=== PATIENT | male | born 1955 | race African-American/Black ===

== ENCOUNTER 2017-12-02 17:21 | Inpatient (IN) | payer MEDICAID, OTHER ==
[~2017-12-02] VITALS: Ht 185.4 cm; Wt 102.6 kg
[2017-12-02 19:09] LABS: Urine Bacteria FEW /hpf (None Seen); Urine Blood 1+ /uL (Negative); Urine Specific Gravity 1.011 (1.001-1.035); Urine WBC 3 /hpf (0 - 3)
[2017-12-02 19:11] LABS: Basophils # (auto) 0.1 uL; Eosinophils # (auto) 0.3 uL; Hemoglobin 9.6 g/dL (13.5-17.5); Lymphocytes # (auto) 1.4 uL; Red Cell Distribution Width 17.5 % (11.8-14.3)
[2017-12-02 19:13] LABS: Basophils % (auto) 0.8 % (0.0-2.0); Eosinophils % (auto) 3.1 % (0.0-7.0); Hematocrit 30.8 % (41.0-53.0); Lymphocytes % (auto) 12.3 % (10.0-50.0); Mean Corpuscular Hemoglobin 22.7 pg (28.0-32.0); Mean Corpuscular Hgb Conc. 31.2 g/dL (32.0-36.0); Monocytes # (auto) 0.7 uL; Monocytes % (auto) 6.3 % (0.0-12.0); Neutrophils # (auto) 8.8 uL; Neutrophils % (auto) 77.5 % (37.0-80.0); Platelet Count (auto) 371 10^3/uL (140-450); Red Blood Cells 4.22 10^6/uL (4.5-5.90); White Blood Cell 11.3 10^3/uL (4.4-10.8)
[2017-12-02 19:14] LABS: Albumin 2.8 g/dL (3.4-5.0); Calcium 7.9 mg/dL (8.5-10.1); Potassium 4.5 mmol/L (3.5-5.1)
[2017-12-02 19:22] LABS: BUN/Creatinine Ratio 7.5; Bilirubin, Total 0.3 mg/dL (0.2-1.0); Total Protein 7.6 g/dL (6.4-8.2)
[2017-12-02] MEDS ORDERED: hydrALAZINE HCL 20 MG/ML VL IV ONE (20:45)
[2017-12-02] MEDS ORDERED: cloNIDine HCL 0.1 MG TAB PO ONE (20:45)
[2017-12-02 21:40] LABS: INR 0.95 (0.9-1.15); Partial Thromboplastin Time 67.5 sec (23.78-33.04); Prothrombin Time 10.2 sec (9.27-12.13)
[2017-12-03] MEDS ORDERED: PANTOPRAZOLE 40 MG/10 ML VIAL IV ONE (01:30)
[2017-12-03] MEDS ORDERED: FUROSEMIDE 20 MG/2 ML VIAL IV ONE (01:30)
[2017-12-03] MEDS ORDERED: MORPHINE SULFATE 4 MG/ML SYR/VIAL IV PRN (04:45)
[2017-12-03] MEDS ORDERED: NITROGLYCERIN 0.4 MG SL TAB SL PRN (04:45)
[2017-12-03] MEDS ORDERED: ONDANSETRON HCL 4 MG/2 ML VIAL IV PRN (05:00)
[2017-12-03] MEDS ORDERED: DEXTROSE (50%) 50ML SYRG IV PRN (05:00)
[2017-12-03] MEDS ORDERED: ACETAMINOPHEN 500 MG TAB PO PRN (05:00)
[2017-12-03 05:45] LABS: Basophils # (auto) 0.1 uL; Basophils % (auto) 0.8 % (0.0-2.0); Eosinophils # (auto) 0.3 uL; Hemoglobin 9.4 g/dL (13.5-17.5)
[2017-12-03 05:47] LABS: Eosinophils % (auto) 3.4 % (0.0-7.0); Hematocrit 29.5 % (41.0-53.0); Lymphocytes # (auto) 1.4 uL; Lymphocytes % (auto) 14.4 % (10.0-50.0); Mean Corpuscular Hgb Conc. 31.7 g/dL (32.0-36.0); Mean Corpuscular Volume 72.5 fL (80.0-100.0); Monocytes # (auto) 0.8 uL; Monocytes % (auto) 7.9 % (0.0-12.0); Neutrophils # (auto) 7.1 uL; Neutrophils % (auto) 73.5 % (37.0-80.0); Platelet Count (auto) 348 10^3/uL (140-450); Red Blood Cells 4.08 10^6/uL (4.5-5.90); Red Cell Distribution Width 17.4 % (11.8-14.3); White Blood Cell 9.7 10^3/uL (4.4-10.8)
[2017-12-03 05:52] LABS: Mean Corpuscular Hemoglobin 23.2 pg (28.0-32.0)
[2017-12-03] MEDS ORDERED: cloNIDine HCL 0.1 MG TAB PO SCH (06:00)
[2017-12-03 06:12] LABS: BUN/Creatinine Ratio 7.8; Calcium 8.6 mg/dL (8.5-10.1); Potassium 4.5 mmol/L (3.5-5.1)
[2017-12-03] MEDS: hydrALAZINE HCL 25 MG TAB PO SCH ×3 (06:27→21:56)
[2017-12-03] MEDS: ACCU-CHEK COMFORT CURVE STRIP VI SCH ×4 (06:27→22:03)
[2017-12-03] MEDS: InsuLIN REG 1unit/0.01ml Soln (100units/ml) SC SCH ×4 (06:28→22:00)
[2017-12-03] MEDS: INSULIN LANTUS (GLARGINE) 1 /0.01ml (100units/ml) SC SCH (07:00)
[2017-12-03 08:45] VITALS: BP 147/90
[2017-12-03 09:00] VITALS: BP 147/90
[2017-12-03] MEDS ORDERED: LOSARTAN POTASSIUM 50 MG TAB PO SCH (10:00)
[2017-12-03] MEDS: SODIUM BICARBONATE 650 MG TAB PO SCH ×2 (10:56→21:55)
[2017-12-03] MEDS ORDERED: FUROSEMIDE 40 MG/4 ML VIAL IV ONE (12:30)
[2017-12-03 12:42] VITALS: BP 158/100
[2017-12-03] MEDS ORDERED: LOSA-46 PO (12:50)
[2017-12-03] MEDS ORDERED: HYDR100T22 PO (12:50)
[2017-12-03] MEDS ORDERED: CLON0.1T PO (12:50)
[2017-12-03 14:04] LABS: Hepatitis B Surface Antigen Negative (Negative)
[2017-12-03 14:05] LABS: Hepatitis A Ab IgM Negative; Hepatitis B Core IgM Negative
[2017-12-03 14:19] LABS: Hepatitis C Antibody Positive (Negative)
[2017-12-03] MEDS: cloNIDine HCL 0.1 MG TAB PO SCH ×2 (15:15→21:56)
[2017-12-03 16:57] VITALS: BP 174/101
[2017-12-03] MEDS: SEVELAMER 800 MG TAB PO SCH (17:41)
[2017-12-03] MEDS: FUROSEMIDE 40 MG/4 ML VIAL IV SCH (17:42)
[2017-12-03 20:00] VITALS: BP 121/69
[2017-12-03] MEDS: SILVER SULFADIAZINE 1 % TOPICAL CREAM 50GM TOP SCH (21:56)
[2017-12-03 22:00] VITALS: BP 121/69
[2017-12-04 05:00] VITALS: BP 112/71
[2017-12-04] MEDS: cloNIDine HCL 0.1 MG TAB PO SCH ×3 (06:00→21:46)
[2017-12-04] MEDS: hydrALAZINE HCL 25 MG TAB PO SCH ×3 (06:00→21:45)
[2017-12-04] MEDS: FUROSEMIDE 40 MG/4 ML VIAL IV SCH ×2 (06:01→17:27)
[2017-12-04] MEDS: INSULIN LANTUS (GLARGINE) 1 /0.01ml (100units/ml) SC SCH (06:02)
[2017-12-04] MEDS: InsuLIN REG 1unit/0.01ml Soln (100units/ml) SC SCH ×4 (06:02→21:46)
[2017-12-04] MEDS: ACCU-CHEK COMFORT CURVE STRIP VI SCH ×4 (06:03→21:47)
[2017-12-04 06:19] LABS: Eosinophils # (auto) 0.4 uL; Lymphocytes # (auto) 1.3 uL
[2017-12-04 06:22] LABS: Basophils # (auto) 0.1 uL; Basophils % (auto) 0.6 % (0.0-2.0); Eosinophils % (auto) 3.8 % (0.0-7.0); Hemoglobin 9.7 g/dL (13.5-17.5); Mean Corpuscular Hemoglobin 23.6 pg (28.0-32.0); Mean Corpuscular Hgb Conc. 32.4 g/dL (32.0-36.0); Mean Corpuscular Volume 72.7 fL (80.0-100.0); Monocytes # (auto) 0.6 uL; Monocytes % (auto) 6.5 % (0.0-12.0); Neutrophils # (auto) 7.2 uL; Neutrophils % (auto) 75.1 % (37.0-80.0); Platelet Count (auto) 353 10^3/uL (140-450); Red Blood Cells 4.13 10^6/uL (4.5-5.90); Red Cell Distribution Width 17.5 % (11.8-14.3); White Blood Cell 9.5 10^3/uL (4.4-10.8)
[2017-12-04 06:55] LABS: Albumin 2.8 g/dL (3.4-5.0); BUN/Creatinine Ratio 7.8; Bilirubin, Total 0.3 mg/dL (0.2-1.0); Calcium 8.6 mg/dL (8.5-10.1); Potassium 4.3 mmol/L (3.5-5.1); Total Protein 7.3 g/dL (6.4-8.2)
[2017-12-04] MEDS: SEVELAMER 800 MG TAB PO SCH ×3 (08:00→17:27)
[2017-12-04 08:07] VITALS: BP 152/92
[2017-12-04] MEDS: NIFEdipine ER 30 MG TAB PO SCH (10:05)
[2017-12-04] MEDS: POTASSIUM CHL 20 Meq TABLET PO SCH (10:05)
[2017-12-04] MEDS: EUCERIN CREAM 2OZ TUBE TOP SCH (10:06)
[2017-12-04] MEDS: SILVER SULFADIAZINE 1 % TOPICAL CREAM 50GM TOP SCH ×2 (10:06→21:47)
[2017-12-04] MEDS: SODIUM BICARBONATE 650 MG TAB PO SCH ×2 (10:06→21:45)
[2017-12-04] MEDS: CHLORHEXIDINE 4% TOPICAL soln 237ML TOP SCH (10:52)
[2017-12-04 12:14] VITALS: BP 157/91
[2017-12-04] MEDS ORDERED: EPOETIN ALFA 10,000 UNIT/1 ML VIAL SC ONE (15:00)
[2017-12-04 17:00] VITALS: BP 134/79
[2017-12-04 17:25] LABS: % Iron Saturation 12.5 % (20-55)
[2017-12-04 20:00] VITALS: BP 124/73
[2017-12-04 22:00] VITALS: BP 124/73
[2017-12-05 04:53] VITALS: BP 110/67
[2017-12-05] MEDS: FUROSEMIDE 40 MG/4 ML VIAL IV SCH ×2 (05:37→17:29)
[2017-12-05] MEDS: cloNIDine HCL 0.1 MG TAB PO SCH ×3 (05:38→21:43)
[2017-12-05] MEDS: hydrALAZINE HCL 25 MG TAB PO SCH ×3 (05:38→21:49)
[2017-12-05] MEDS: INSULIN LANTUS (GLARGINE) 1 /0.01ml (100units/ml) SC SCH (07:00)
[2017-12-05] MEDS: InsuLIN REG 1unit/0.01ml Soln (100units/ml) SC SCH ×4 (07:00→21:46)
[2017-12-05] MEDS: ACCU-CHEK COMFORT CURVE STRIP VI SCH ×4 (07:07→21:46)
[2017-12-05 07:41] LABS: Basophils # (auto) 0.1 uL; Hematocrit 29.4 % (41.0-53.0); Lymphocytes # (auto) 1.7 uL; Red Cell Distribution Width 17.4 % (11.8-14.3)
[2017-12-05 07:44] LABS: Basophils % (auto) 0.6 % (0.0-2.0); Eosinophils # (auto) 0.3 uL; Eosinophils % (auto) 3.5 % (0.0-7.0); Hemoglobin 9.3 g/dL (13.5-17.5); Lymphocytes % (auto) 17.3 % (10.0-50.0); Mean Corpuscular Hemoglobin 22.7 pg (28.0-32.0); Mean Corpuscular Hgb Conc. 31.7 g/dL (32.0-36.0); Mean Corpuscular Volume 71.7 fL (80.0-100.0); Monocytes # (auto) 0.8 uL; Monocytes % (auto) 8.1 % (0.0-12.0); Neutrophils % (auto) 70.5 % (37.0-80.0); Platelet Count (auto) 372 10^3/uL (140-450); White Blood Cell 9.9 10^3/uL (4.4-10.8)
[2017-12-05 07:50] LABS: Albumin 2.8 g/dL (3.4-5.0); BUN/Creatinine Ratio 7.9; Bilirubin, Total 0.3 mg/dL (0.2-1.0); Calcium 8.3 mg/dL (8.5-10.1); Potassium 4.3 mmol/L (3.5-5.1)
[2017-12-05 08:30] VITALS: BP 128/73
[2017-12-05] MEDS: SEVELAMER 800 MG TAB PO SCH ×3 (08:31→17:29)
[2017-12-05] MEDS: SODIUM FERR GLUC 62.5MG/5ML 125 MG in SODIUM CHL 0.9% 100 ML IV SCH (09:25)
[2017-12-05] MEDS: POTASSIUM CHL 20 Meq TABLET PO SCH (10:33)
[2017-12-05] MEDS: SODIUM BICARBONATE 650 MG TAB PO SCH ×2 (10:34→21:43)
[2017-12-05] MEDS: NIFEdipine ER 30 MG TAB PO SCH (10:35)
[2017-12-05] MEDS ORDERED: SODIUM FERR GLUC 62.5MG/5ML 125 MG in SODIUM CHL 0.9% 100 ML IV SCH (12:00)
[2017-12-05 12:30] VITALS: BP 130/71
[2017-12-05] MEDS: SILVER SULFADIAZINE 1 % TOPICAL CREAM 50GM TOP SCH ×2 (15:18→21:43)
[2017-12-05] MEDS: CHLORHEXIDINE 4% TOPICAL soln 237ML TOP SCH (15:18)
[2017-12-05] MEDS: EUCERIN CREAM 2OZ TUBE TOP SCH (15:44)
[2017-12-05 16:37] VITALS: BP 111/67
[2017-12-05 20:00] VITALS: BP 134/76
[2017-12-05 21:35] VITALS: BP 134/76
[2017-12-06 04:34] VITALS: BP 119/72
[2017-12-06] MEDS: cloNIDine HCL 0.1 MG TAB PO SCH ×3 (06:00→22:32)
[2017-12-06] MEDS: hydrALAZINE HCL 25 MG TAB PO SCH ×3 (06:00→22:00)
[2017-12-06 06:07] LABS: Basophils # (auto) 0.1 uL; Basophils % (auto) 0.5 % (0.0-2.0); Eosinophils # (auto) 0.4 uL; Eosinophils % (auto) 3.5 % (0.0-7.0); Hematocrit 32.8 % (41.0-53.0); Hemoglobin 10.3 g/dL (13.5-17.5); Lymphocytes % (auto) 17.2 % (10.0-50.0); Mean Corpuscular Hemoglobin 22.6 pg (28.0-32.0); Mean Corpuscular Hgb Conc. 31.4 g/dL (32.0-36.0); Mean Corpuscular Volume 72.1 fL (80.0-100.0); Monocytes # (auto) 0.8 uL; Monocytes % (auto) 6.6 % (0.0-12.0); Neutrophils # (auto) 8.5 uL; Neutrophils % (auto) 72.2 % (37.0-80.0); Platelet Count (auto) 401 10^3/uL (140-450); Red Blood Cells 4.54 10^6/uL (4.5-5.90); Red Cell Distribution Width 17.3 % (11.8-14.3); White Blood Cell 11.8 10^3/uL (4.4-10.8)
[2017-12-06] MEDS: FUROSEMIDE 40 MG/4 ML VIAL IV SCH ×2 (06:20→18:28)
[2017-12-06] MEDS: InsuLIN REG 1unit/0.01ml Soln (100units/ml) SC SCH ×4 (06:21→22:00)
[2017-12-06] MEDS: INSULIN LANTUS (GLARGINE) 1 /0.01ml (100units/ml) SC SCH (06:21)
[2017-12-06] MEDS: ACCU-CHEK COMFORT CURVE STRIP VI SCH ×4 (06:22→22:33)
[2017-12-06 06:30] LABS: BUN/Creatinine Ratio 7.2; Calcium 8.6 mg/dL (8.5-10.1); Potassium 4.5 mmol/L (3.5-5.1)
[2017-12-06 06:32] LABS: Bilirubin, Total 0.3 mg/dL (0.2-1.0); Total Protein 7.7 g/dL (6.4-8.2)
[2017-12-06] MEDS: SEVELAMER 800 MG TAB PO SCH ×3 (08:44→18:28)
[2017-12-06] MEDS: SODIUM FERR GLUC 62.5MG/5ML 125 MG in SODIUM CHL 0.9% 100 ML IV SCH (08:50)
[2017-12-06] MEDS: POTASSIUM CHL 20 Meq TABLET PO SCH (08:58)
[2017-12-06] MEDS: NIFEdipine ER 30 MG TAB PO SCH (08:58)
[2017-12-06] MEDS: SODIUM BICARBONATE 650 MG TAB PO SCH ×2 (08:58→22:31)
[2017-12-06 09:00] VITALS: BP 150/78
[2017-12-06] MEDS: CHLORHEXIDINE 4% TOPICAL soln 237ML TOP SCH (10:00)
[2017-12-06] MEDS: EUCERIN CREAM 2OZ TUBE TOP SCH (10:00)
[2017-12-06] MEDS: SILVER SULFADIAZINE 1 % TOPICAL CREAM 50GM TOP SCH ×2 (10:00→22:33)
[2017-12-06 13:00] VITALS: BP 140/78
[2017-12-06 16:54] VITALS: BP 136/80
[2017-12-06 20:00] VITALS: BP 134/94
[2017-12-06 21:04] VITALS: BP 134/94
[2017-12-07 04:20] VITALS: BP 134/78
[2017-12-07] MEDS: InsuLIN REG 1unit/0.01ml Soln (100units/ml) SC SCH ×2 (07:00→11:30)
[2017-12-07] MEDS: INSULIN LANTUS (GLARGINE) 1 /0.01ml (100units/ml) SC SCH (07:00)
[2017-12-07] MEDS: FUROSEMIDE 40 MG/4 ML VIAL IV SCH (07:07)
[2017-12-07] MEDS: hydrALAZINE HCL 25 MG TAB PO SCH ×2 (07:08→14:16)
[2017-12-07] MEDS: cloNIDine HCL 0.1 MG TAB PO SCH ×2 (07:09→14:17)
[2017-12-07] MEDS: ACCU-CHEK COMFORT CURVE STRIP VI SCH ×2 (07:09→11:30)
[2017-12-07] MEDS: SEVELAMER 800 MG TAB PO SCH ×2 (08:36→12:16)
[2017-12-07 08:52] VITALS: BP 134/77
[2017-12-07] MEDS: SODIUM FERR GLUC 62.5MG/5ML 125 MG in SODIUM CHL 0.9% 100 ML IV SCH (09:12)
[2017-12-07] MEDS: SODIUM BICARBONATE 650 MG TAB PO SCH (09:51)
[2017-12-07] MEDS: POTASSIUM CHL 20 Meq TABLET PO SCH (09:51)
[2017-12-07] MEDS: NIFEdipine ER 30 MG TAB PO SCH (09:52)
[2017-12-07] MEDS: CHLORHEXIDINE 4% TOPICAL soln 237ML TOP SCH (10:00)
[2017-12-07] MEDS: SILVER SULFADIAZINE 1 % TOPICAL CREAM 50GM TOP SCH (10:00)
[2017-12-07] MEDS: EUCERIN CREAM 2OZ TUBE TOP SCH (10:00)
[2017-12-07 13:00] VITALS: BP 144/79
[2017-12-07] MEDS ORDERED: FER325T PO (13:22)
[2017-12-07] MEDS ORDERED: SEVE800T PO (13:22)
[2017-12-07] MEDS ORDERED: SODI650T PO (13:22)
[2017-12-07] MEDS ORDERED: CLO01T PO (13:22)
[2017-12-07] MEDS ORDERED: HYDR-4296 PO (13:22)
[2017-12-07] MEDS ORDERED: FURO40TA4 PO (13:22)
[2017-12-07] MEDS ORDERED: NIF30XLT PO (13:22)
[2017-12-07 14:21] VITALS: BP 144/79
== END 2017-12-07 15:20 | disposition home or self-care (01) | DRG 190 ==
LOC: ER 17:21 → TELE 17:22 → TELE-WESTW 12-03 07:59
PROVIDERS: ADMIT Nurse Practitioner Family; ATTEND Internal Medicine
DX: I21.A1 Myocardial infarction type 2 (principal); E43 Unspecified severe protein-calorie malnutrition; D66 Hereditary factor VIII deficiency; I13.2 Hypertensive heart and chronic kidney disease with heart failure and with stage 5 chronic kidney disease, or end stage renal disease; I50.43 Acute on chronic combined systolic (congestive) and diastolic (congestive) heart failure; E87.2 Acidosis; N17.9 Acute kidney failure, unspecified; E11.21 Type 2 diabetes mellitus with diabetic nephropathy; N18.6 End stage renal disease; I16.0 Hypertensive urgency; E11.22 Type 2 diabetes mellitus with diabetic chronic kidney disease; E11.65 Type 2 diabetes mellitus with hyperglycemia; E11.621 Type 2 diabetes mellitus with foot ulcer; I16.1 Hypertensive emergency; D63.1 Anemia in chronic kidney disease; E66.9 Obesity, unspecified; D50.9 Iron deficiency anemia, unspecified; B19.20 Unspecified viral hepatitis C without hepatic coma; L97.519 Non-pressure chronic ulcer of other part of right foot with unspecified severity; E83.39 Other disorders of phosphorus metabolism; L08.9 Local infection of the skin and subcutaneous tissue, unspecified; L84 Corns and callosities; N25.81 Secondary hyperparathyroidism of renal origin; Z79.4 Long term (current) use of insulin; Z83.0 Family history of human immunodeficiency virus [HIV] disease; Z88.6 Allergy status to analgesic agent; Z91.19 Patient's noncompliance with other medical treatment and regimen; Z99.2 Dependence on renal dialysis; Z68.29 Body mass index [BMI] 29.0-29.9, adult
CPT/HCPCS: 36415; 71045; 73630; 76775; 80048; 80053; 80074; 81001; 82962; 83036; 83540; 83550; 83735; 83880; 83970; 84100; 84484; 85025; 85610; 85730; 93306; 94761; 96374; 96375; C9113; J0885; J1815

== ENCOUNTER 2021-06-29 20:16 | Emergency (ER) | payer MEDICARE, MEDICAID, OTHER ==
[~2021-06-29] VITALS: Ht 177.8 cm; Wt 90.7 kg
[~2021-06-29 20:16] MED LIST: CLO01T PO; CLON0.1T PO; FER325T PO; FURO40TA4 PO; HYDR-4296 PO; HYDR100T22 PO; LOSA-69 PO; NIFE1TAB36 PO; SEVE800T PO; SODI650T PO
[2021-06-29] MEDS ORDERED: ETOMIDATE (2MG/ML) 20ML VIAL IV ONE ×2 (20:37→21:15)
[2021-06-29] MEDS ORDERED: MIDAZOLAM HCL 5 MG/ML-1ML VIAL ONE (20:38)
[2021-06-29] MEDS ORDERED: MIDAZOLAM HCL 2MG/2ML 2ml VIAL (1mg/ml) ONE (20:38)
[2021-06-29] MEDS ORDERED: PROPOFOL 100 ML IV ONE (20:39)
[2021-06-29] MEDS ORDERED: SUCCINYLCHOLINE CHLORIDE 20 MG/ML 10ML VIAL IV ONE (20:39)
[2021-06-29] MEDS ORDERED: ROCURONIUM 10MG/ML 10ML VIAL IV ONE ×2 (20:44→21:15)
[2021-06-29] MEDS ORDERED: MIDAZOLAM HCL 5 MG/ML-1ML VIAL IV ONE (21:15)
[2021-06-29] MEDS ORDERED: PROPOFOL 100 ML IV SCH (21:15)
[2021-06-29 21:29] VITALS: BP 137/76
[2021-06-29 21:35] LABS: Chloride 100 mmol/L (98-107); Sodium 137 mmol/L (136-145)
[2021-06-29 21:38] LABS: Albumin 3.6 g/dL (3.4-5.0); Anion Gap 18 (5-15); BUN/Creatinine Ratio 6.9; Calcium 9.6 mg/dL (8.5-10.1); Carbon Dioxide 19 mmol/L (21-32); GFR African American 5 mL/min; GFR Non-African American 4 mL/min; Glucose 130 mg/dL (74-106)
[2021-06-29 21:41] LABS: Alanine Aminotransferase 33 U/L (16-61); Alkaline Phosphatase 64 U/L (45-117); Aspartate Aminotransferase 57 U/L (15-37); Bilirubin, Total 0.6 mg/dL (0.2-1.0); Total Protein 7.6 g/dL (6.4-8.2)
[2021-06-29 21:46] LABS: Basophils # (auto) 0.1 10 ^3/uL (0-0.2); Basophils % (auto) 0.8 % (0.0-2.0); Eosinophils # (auto) 0.2 10 ^3/uL (0-0.8); Eosinophils % (auto) 1.3 % (0.0-7.0); Hematocrit 25.9 % (41.0-53.0); Hemoglobin 8.4 g/dL (13.5-17.5); Lymphocytes # (auto) 0.8 10 ^3/uL (0.4-5.4); Lymphocytes % (auto) 4.9 % (10.0-50.0); Mean Corpuscular Hemoglobin 25.5 pg (28.0-32.0); Mean Corpuscular Hgb Conc. 32.3 g/dL (32.0-36.0); Mean Corpuscular Volume 78.9 fL (80.0-100.0); Monocytes # (auto) 0.4 10 ^3/uL (0-1.3); Monocytes % (auto) 2.6 % (0.0-12.0); Neutrophils # (auto) 14.2 10 ^3/uL (1.6-8.6); Neutrophils % (auto) 90.4 % (37.0-80.0); Red Blood Cells 3.29 10^6/uL (4.5-5.90); Red Cell Distribution Width 18.5 % (11.8-14.3); White Blood Cell 15.8 10^3/uL (4.4-10.8)
[2021-06-29 22:15] LABS: Blood Urea Nitrogen 95 mg/dL (7-18)
== END 2021-06-29 22:03 | disposition short-term general hospital (02) ==
LOC: ER 20:16 → EDBD 20:16 → ER 22:03
DX: R06.02 Shortness of breath (principal); M25.511 Pain in right shoulder; E11.22 Type 2 diabetes mellitus with diabetic chronic kidney disease; I12.0 Hypertensive chronic kidney disease with stage 5 chronic kidney disease or end stage renal disease; N18.6 End stage renal disease; Z88.6 Allergy status to analgesic agent
CPT/HCPCS: 31500; 36415; 36600; 71045; 80053; 82805; 85025; 86850; 86900; 86901; 87070; 87077; 87186; 87205; 93005; 99285; J0330; J2250; J2704; 94002